=== PATIENT | female | born 1970 | race Caucasian/White ===

== ENCOUNTER 2019-03-03 08:24 | Day surgery (SDC) | payer BC, OTHER ==
[2019-03-02 13:03] VITALS: BMI 33.6
[2019-03-03] MEDS ORDERED: MIDAZOLAM HCL 2 MG/2 ML SINGLE DOSE VIAL ONE (08:41)
[2019-03-03] MEDS ORDERED: PROPOFOL 20 ML ONE (08:41)
[2019-03-03] MEDS ORDERED: ceFAZolin SODIUM 1 GM VIAL IVPB ONE (08:46)
[2019-03-03] MEDS ORDERED: LIDOCAINE HCL 1%, 10 MG/ML (20ML VIAL) ONE (09:17)
[2019-03-03] MEDS ORDERED: LIDOCAINE 1%-EPI 1:100,000 30 ML MDV IJ ONE (09:18)
[2019-03-03] MEDS ORDERED: BUPIVACAINE HCL/PF 0.5% (5 MG/ML) 30 ML VIAL IJ ONE (09:18)
--- NOTE | 2019-03-03 09:37 | HP ---
[facility]ellite [facility] - Chief Complaint Chief Complaint: right knee pain - Past Medical History Allergies/Adverse Reactions: Allergies Allergy/AdvReac Type Severity Reaction Status Date / Time amoxicillin [From Augmentin] Allergy Verified 03/02/19 13:03 clavulanic acid Allergy Verified 03/02/19 13:03 [From Augmentin] Penicillins Allergy Verified 03/02/19 13:03 ...LMP Comment: 30 YEARAS AGO - Current Medications Current Medications: Home Medications Medication Instructions Recorded Bupropion HCl [Wellbutrin Xl] 300 mg PO DAILY 03/02/19 Clonazepam 0.5 mg PO TID 03/02/19 Cyclobenzaprine HCl 5 mg PO BID 03/02/19 Duloxetine HCl [Cymbalta] 90 mg PO HS 03/02/19 Fluticasone Propionate [Flovent 50 mcg IH PRN 03/02/19 Diskus] Gabapentin [Neurontin] 600 mg PO BID 03/02/19 Meloxicam [Mobic (Nf) -] 15 mg PO DAILY 03/02/19 Metformin HCl [Metformin HCl ER] 500 mg PO BID 03/02/19 Metoprolol Succinate [Toprol Xl] 25 mg PO BID 03/02/19 Naloxegol Oxalate [Movantik] 25 mg PO PRN 03/02/19 Omeprazole 20 mg PO DAILY 03/02/19 Oxycodone HCl [Oxycontin] 30 mg PO HS 03/02/19 Oxycodone HCl/Acetaminophen 1 each PO TID 03/02/19 [Oxycodone-Acetaminophen 10-325] Pilocarpine HCl 5 mg PO TID 03/02/19 Simvastatin [Zocor] 20 mg PO HS 03/02/19 Sumatriptan Succinate [Imitrex -] 50 mg PO PRN 03/02/19 Tizanidine HCl 6 mg PO TID 03/02/19 Zolpidem Tartrate [Ambien] 10 mg PO PRN 03/02/19 Satellite Physical Exam - Physical Examination Vital Signs: Vital Signs Period Temp Pulse Resp BP Sys/Crocker Pulse Ox Last 24 Hr 98.1 F-98.1 F 71-71 20-20 119-119/77-77 99 General Appearance: Well Nourished, Well Developed, Alert & Oriented x3 ENT: Clear Lung: Normal air movement Extremities: Other (right knee- + swelling, + ttp ,decr rom, + mcmurrays, nvi, MRI + mt) Neurological: Intact, Alert, Oriented Satellite Impression/Plan - Impression/Plan Impression: right knee internal derangement Operative Procedure: right knee arthroscopy Date to be Performed: 03/03/19
[2019-03-03] MEDS ORDERED: ceFAZolin SODIUM 1 GM VIAL ONE (09:48)
[2019-03-03] MEDS ORDERED: BUPIVACAINE HCL/PF 0.5% (5MG/ML) 10 ML VIAL NR ONE (09:57)
[2019-03-03] MEDS ORDERED: LIDOCAINE 1%/EPI 1:100000 (20 ML MULTI DOSE VIAL) IJ ONE (09:57)
[2019-03-03] MEDS ORDERED: oxyCODONE HCL 5 MG TABLET PO PRN (11:02)
[2019-03-03] MEDS ORDERED: LACTATED RINGERS SOLUTION 1,000 ML IV SCH (11:15)
[2019-03-03] MEDS ORDERED: oxyCODONE HCL 5 MG TABLET ONE (11:44)
[2019-03-03 12:34] VITALS: BP 125/72; PULSE 84; TEMP 98.3
--- NOTE | 2019-03-04 07:48 | SPEC ---
DATE OF OPERATION: PREOPERATIVE DIAGNOSIS: Internal derangement, right knee. POSTOPERATIVE DIAGNOSIS: Internal derangement, right knee. PROCEDURE: Right knee arthroscopy with partial medial meniscectomy. SURGICAL ATTENDING: Erlin Kruse MD PERSONAL CARE WORKER: No recovery assistant. ANESTHESIA: General with LMA. CLOSURE: 4-0 nylon. COMPLICATIONS: None. CONDITION: To recovery room in stable condition. DESCRIPTION OF OPERATIVE PROCEDURE: Patient was taken to the operating room on March 03, 2019. General anesthesia with LMA was administered by the anesthesiologist. The right lower extremity was prepped and draped in the usual sterile fashion. The medial and lateral infrapatellar portal sites were infiltrated with 1% Xylocaine with epinephrine. Both portals were then made with a 15 blade followed by a blunt trocar. The scope was placed in the lateral infrapatellar portal and up into the suprapatellar pouch. The knee was inflated with a cocktail of 10 mL of 1% Xylocaine, 10 mL of 0.5% Marcaine, and 20 mL of arthroscopic saline. This was allowed to sit in the knee for a few minutes to allow the anesthetic to work intra-articularly. The scope was placed in the lateral infrapatellar portal and up into the suprapatellar pouch. The pouch was visualized to be clean. The medial and lateral gutters were visualized to be clean. The undersurface of the patella and trochlea were visualized to be intact. With valgus stress on the knee, the medial compartment was entered. The medial meniscus was visualized, probed, and found to have a complex tear of the posterior horn. This was debrided back to smooth stable meniscal tissue using a meniscal biter and arthroscopic shaver. The medial femoral condyle was run and found to be intact as well as the medial tibial plateau. At 90 degrees, the ACL was visualized, probed, and found to be intact. In the figure 4 position, the lateral compartment was entered. The lateral meniscus was visualized, probed, and found to be intact. The lateral femoral condyle was run and found to be intact as was the lateral tibial plateau. The knee was irrigated with copious amounts of irrigation and then the fluid was drained. The inferomedial portal was closed then with 4-0 nylon. Prior to pulling the trocar from the lateral infrapatellar portal, 20 mL of 0.5% Marcaine was infused into the knee for postoperative analgesia. The trocar was then pulled and the incision was closed with 4-0 nylon suture. A sterile pressure dressing was applied. Patient awakened from anesthesia and transferred to recovery in stable condition. No complication. Estimated blood loss negligible. Anne CHILDS/[id number]
--- NOTE | 2019-03-08 16:14 | PATH ---
Surgical Pathology Report Patient Name: CHELLY ZULUAGA [facility]. Rec. #: [id number] /Age/Gender: 1970 (Age: 48) / F Account: [id number] Location: [facility] SURGICAL Taken: 03/03/2019 Received: 03/03/2019 Reported: 03/08/2019 Physicians: Erlin Kruse M.D. Specimen(s) Received RIGHT KNEE SHAVINGS Clinical History Right knee tear Final Diagnosis KNEE, RIGHT, ARTHROSCOPIC SHAVINGS: FIBROSYNOVIAL TISSUE AND CARTILAGE. Electronically Signed Lorie Peterson M.D. Gross Description Received in formalin, labeled "right knee shavings," is a 3.5 x 2.7 x 0.3 cm. aggregate of alejandro-yellow soft tissue fragments. A employer relations representative portion is submitted in one cassette. 03/04/201903/04/2019
== END 2019-03-03 12:30 | disposition home or self-care (01) ==
LOC: JASU-SURG 08:24
PROVIDERS: ATTEND Orthopaedic Surgery
PROC: 0SBC4ZZ Excision of Right Knee Joint, Percutaneous Endoscopic Approach (ICD-10-PCS; principal; 2019-03-03 10:00)
DX: M23.321 Other meniscus derangements, posterior horn of medial meniscus, right knee (principal)
CPT/HCPCS: 82962; 84703; 88304-TC; 94760